=== PATIENT | female | born 1970 | race African-American/Black ===

== ENCOUNTER 2025-03-02 19:04 | Emergency (ER) | payer OTHER ==
[2025-03-02 19:13] VITALS: BP 156/72; PULSE 80; RESP 17; TEMP 99.1; BMI 30.8
[2025-03-02] MEDS ORDERED: ACETAMINOPHEN 500 MG TABLET (FP) ONE (19:38)
[2025-03-02] MEDS ORDERED: LIDOCAINE 4% PATCH TP ONE (19:38)
[2025-03-02] MEDS ORDERED: KETOROLAC TROMETHAMINE 30 MG/1 ML VIAL ONE (19:38)
[2025-03-02 19:52] LABS: URINE APPEARANCE CLEAR; URINE BILIRUBIN NEGATIVE (NEGATIVE); URINE COLOR YELLOW; URINE GLUCOSE (UA) NEGATIVE (NEGATIVE); URINE KETONE NEGATIVE (NEGATIVE); URINE LEUK ESTERASE NEGATIVE (NEGATIVE); URINE NITRITE NEGATIVE (NEGATIVE); URINE PROTEIN NEGATIVE (NEGATIVE); URINE UROBILINOGEN 0.2 mg/dL (0.2-1.0)
[2025-03-02] MEDS: KETOROLAC TROMETHAMINE 30 MG/1 ML VIAL IM ONE (19:52)
[2025-03-02] MEDS: ACETAMINOPHEN 500 MG TABLET (FP) PO ONE (19:53)
[2025-03-02] MEDS: LIDOCAINE 4% PATCH TP ONE (19:54)
[2025-03-02 20:07] LABS: HCG,QUALITATIVE URINE Negative
[2025-03-02] MEDS ORDERED: LIDOCAINE PATCH REMOVAL MC SCH (22:00)
[2025-03-02] MEDS ORDERED: oxyCODONE HCL 5 MG TABLET ONE (22:13)
[2025-03-02] MEDS: oxyCODONE HCL 5 MG TABLET PO ONE (22:17)
== END 2025-03-02 22:19 | disposition home or self-care (01) ==
LOC: JERFT 19:04
PROC: 3E0233Z Introduction of Anti-inflammatory into Muscle, Percutaneous Approach (ICD-10-PCS; principal; 2025-03-02)
DX: M54.42 Lumbago with sciatica, left side (principal)
CPT/HCPCS: 72131-TC; 81003; 84703; 87077; 87086; 99285-25